=== PATIENT | female | born 1950 | race Caucasian/White ===

== ENCOUNTER → 2017-02-08 | Outpatient (CLI) | payer OTHER | LOC: BMCIMAGING 08:08 | PROVIDERS: ATTEND Physician Assistant | DX: Z12.31 Encounter for screening mammogram for malignant neoplasm of breast (principal) | CPT/HCPCS: G0202 ==

== ENCOUNTER 2018-02-26 17:27 | Emergency (ER) | payer OTHER, MEDICARE ==
[2018-02-26] MEDS ORDERED: ASPIRIN 81 MG CHEWABLE TAB PO ONE (17:42)
--- NOTE | 2018-02-26 18:30 | EDPHY ---
H & P Time Seen by Provider: 02/26/18 17:42 HPI/ROS: HPI Chest pain. 67-year-old female by private vehicle. This patient reports that at 4:00 p.m. Today she just returned from walking her dog. She developed mid chest pain described as sharp and radiating to the left lateral mid chest wall. She was seen at an urgent care initially. She was instructed to come to the emergency department to be evaluated. As she was driving over here her chest pain resolved. On arrival here she has no chest pain on my exam she denies any chest pain. She has had no associated shortness of breath. She does not have a history of coronary artery disease. She is a former smoker. She also has a prior history of hypertension but is no longer on antihypertensive medications. She denies significant family history of coronary artery disease ROS: Constitutional: No fever, no chills. No weakness. Respiratory: No cough. No shortness of breath. Cardiac: No chest pain, no palpitations. Gastrointestinal: No abdominal pain, no vomiting, no diarrhea. Musculoskeletal: No back pain. No neck pain. No myalgias or arthralgias. Skin: No rashes. Neurological: No headache. No focal weakness or altered sensation. Past medical history: Seasonal allergies, appendectomy, hypertension. Social history: Lives with her dog. Former smoker. No alcohol. Physical Exam: General Appearance: Alert, no distress. This patient is responding to questions appropriately and in full sentences. This patient appears well- hydrated and well-nourished. Eyes: Pupils equal and round no pallor or injection. No lid edema, erythema or injection. Respiratory: There are no retractions, lungs are clear to auscultation with good air movement bilaterally. Cardiovascular: Regular rate and rhythm. No murmur. Gastrointestinal: Abdomen is soft and nontender, no masses, bowel sounds normal. No focal tenderness at McBurney's point. No Du sign. Neurological: Motor sensory function is grossly intact. Cranial nerves are normal. Gait is normal. Skin: Warm and dry, no rashes. Musculoskeletal: Neck is supple and nontender. Extremities are symmetrical. All joints range without pain or impingement. Psychiatric: No agitation. No depression. Database: EKG: EKG time is 5:38 p.m.; EKG shows a narrow complex normal sinus rhythm with a ventricular rate of 76. Probable left atrial enlargement and left ventricular hypertrophy. The WA, QRS, QT intervals are within normal limits. There are no ST-T wave changes indicative of ischemic or injury pattern. No evidence of right heart strain. Interpreted by me. Imaging: Chest x-ray PA and lateral; the cardiac mediastinal silhouette is unremarkable. No evidence of infiltrate or pneumothorax. No acute cardiopulmonary disease process noted. Interpreted by me. Procedures: Emergency department course: Triage vital signs reviewed. She has been hypertensive in the emergency department. On my evaluation her blood pressure is 177/92. She was given 324 mg of chewed aspirin. She was placed on a shelter monitor. IV established. EKG obtained and reviewed by myself. 6:30 p.m., patient re-evaluated. Resting comfortably at this time. She remains asymptomatic. No chest pain. No shortness of breath. Results of her emergency department workup including blood work, EKG and chest x-ray discussed with her. I recommended admission for observation and further testing overnight. She refuses admission. In my professional opinion she understands the reasoning for admission and the risks to her health should she refuse admission. The patient competently engages in decision making. They demonstrate capacitance to make decisions. I will have her follow up with [facility] are our cardiology group tomorrow for re-evaluation and further management. She is in agreement with this plan. Return to emergency department precautions were thoroughly discussed with her. All of her questions were answered. She was discharged from the emergency department in good condition. Differential Diagnosis: The differential diagnosis on this patient includes but is not limited to acute coronary syndrome, musculoskeletal chest pain. Pulmonary embolism, aortic dissection, cholecystitis, pneumonia, pneumothorax, myocarditis, pericarditis unlikely. This represents a partial list of diagnoses considered. These considerations are based on history, physical exam, past history, reassessment and diagnostic testing. Smoking Status: Never smoked Constitutional: Initial Vital Signs Temperature (C) 36.9 C 02/26/18 17:34 Heart Rate 76 02/26/18 17:34 Respiratory Rate 18 02/26/18 17:34 Blood Pressure 193/117 H 02/26/18 17:34 O2 Sat (%) 98 02/26/18 17:34 O2 Delivery Mode Room Air Allergies/Adverse Reactions: codeine Allergy (Verified 02/26/18 17:33) Penicillins Allergy (Verified 02/26/18 17:33) Home Medications: Medication Instructions Recorded Claritin-D 12 Hour Tablet 02/26/18 Medical Decision Making - Diagnostics Imaging Results: Imaging Impressions Chest X-Ray 02/26/18 17:43 Impression: Negative. - Data Points Laboratory Results: 02/26/18 02/26/18 17:51 17:49 POC Hgb 14.3 gm/dL gm/dL (12.6-16.3) POC Hct 42 % % (38-47) POC Sodium 140 mEq/L mEq/L (135-145) POC Potassium 3.9 mEq/L mEq/L (3.3-5.0) POC Chloride 106 mEq/L mEq/L (97-110) POC BUN 24 mg/dL H mg/dL (7-23) POC Creatinine 0.7 mg/dL mg/dL (0.6-1.0) POC Glucose 88 mg/dL mg/dL (70-100) POC Troponin I 0.00 ng/mL ng/mL (0.00-0.08) Medications Given: Discontinued Medications Aspirin (Aspirin) 324 mg PO EDNOW ONE Stop: 02/26/18 17:43 Last Admin: 02/26/18 18:05 Dose: 324 mg Point of Care Test Results: Chemistry 02/26/18 02/26/18 17:51 17:49 POC Sodium 140 mEq/L mEq/L (135-145) POC Potassium 3.9 mEq/L mEq/L (3.3-5.0) POC Chloride 106 mEq/L mEq/L (97-110) POC BUN 24 mg/dL H mg/dL (7-23) POC Creatinine 0.7 mg/dL mg/dL (0.6-1.0) POC Glucose 88 mg/dL mg/dL (70-100) POC Troponin I 0.00 ng/mL ng/mL (0.00-0.08) ISTAT H&H 02/26/18 17:51 POC Hgb 14.3 gm/dL gm/dL (12.6-16.3) POC Hct 42 % % (38-47) Departure - Departure Disposition: Home, Routine, Self-Care Clinical Impression: Chest pain Condition: Good Instructions: Chest Pain (ED) Additional Instructions: Read and follow provided instructions. Follow-up with [facility] at our cardiology group tomorrow as discussed for re-evaluation and provocative testing. Call the office of [facility] tomorrow morning at 8:30 a.m.. Explained this is for an emergency department follow-up and that your seen here tonight for chest pain. They will also manage your elevated blood pressure. Return to the emergency department for return of chest pain, shortness of breath or other serious concerns. Referrals: Jodi Mendoza MD [Primary Care Provider] - As per Instructions [facility] [Provider Group] - As per Instructions Quita Fuentes MD [Medical Doctor] - As per Instructions
[2018-02-26 19:06] VITALS: BP 177/92
--- NOTE | 2018-02-26 22:50 | CPEKG ---
Test Reason : OPEN Blood Pressure : / mmHG Vent. Rate : 076 BPM Atrial Rate : 076 BPM P-R Int : 142 ms QRS Dur : 078 ms QT Int : 387 ms P-R-T Axes : -14 006 013 degrees QTc Int : 436 ms Sinus rhythm Probable left atrial enlargement Probable left ventricular hypertrophy Confirmed by Juliane Reece ([id number]) on 02/26/2018 10:49:55 PM Referred By: Confirmed By:Juliane Reece
== END 2018-02-26 19:04 | disposition home or self-care (01) ==
LOC: CED 17:27
DX: R07.9 Chest pain, unspecified (principal); Z86.79 Personal history of other diseases of the circulatory system; Z87.891 Personal history of nicotine dependence
CPT/HCPCS: 71045-PO; 82435-PO; 82565-PO; 82947-PO; 84132-PO; 84295-PO; 84484-PO; 84520-PO; 85014-PO

== ENCOUNTER → 2018-03-25 | Outpatient (CLI) | payer OTHER, MEDICARE | LOC: BHFA 14:00 | PROVIDERS: ATTEND Internal Medicine | DX: R07.9 Chest pain, unspecified (principal); I10 Essential (primary) hypertension ==

== ENCOUNTER → 2018-04-04 | Outpatient (CLI) | payer OTHER, MEDICARE | LOC: BMCIMAGING 13:22 | PROVIDERS: ATTEND Internal Medicine | DX: Z12.31 Encounter for screening mammogram for malignant neoplasm of breast (principal) ==